=== PATIENT | male | born 1975 | race Caucasian/White ===

== ENCOUNTER 2016-10-26 09:55 | Emergency (ER) | payer BC ==
[~2016-10-26] VITALS: Ht 182.9 cm; Wt 110.2 kg
[2016-10-26 10:02] VITALS: BP 157/85
--- NOTE | 2016-10-26 11:35 | NUR ---
PT TO OVERFLOW.
--- NOTE | 2016-10-26 11:41 | NUR ---
PATIENT PRESENTS TO ED WITH C/O SORE THROAT AND COUGH . PT STATES THE SYMPTOMS STARTED 2 DAYS AGO AND HAVE GOTTEN PROGRESSIVELY WORSE . DENIES N/V/D; SKIN IS PINK/WARM/DRY; AAOX4 WITH EVEN AND STEADY GAIT; LUNGS CLEAR BL; HR EVEN AND REGULAR; PT DENIES ANY CP OR SOB AT THIS TIME; PATIENT STATES PAIN OF 8/10 AT THIS TIME; VSS; ER MD MADE AWARE OF PT STATUS.
[2016-10-26] MEDS ORDERED: PENICILLIN G BENZATHINE L-A 2.4 MU/4 ML SYR IM ONE (12:05)
[2016-10-26] MEDS ORDERED: OSELTAMIVIR PHOSPHATE 75 MG CAP PO SCH (12:05)
[2016-10-26] MEDS ORDERED: DEXAMETHASONE 4 MG/ML VIAL PO ONE (12:05)
[2016-10-26] MEDS ORDERED: ACETAMIN/CODEINE 120/12MG-5ML 5 ML UDC PO ONE (12:05)
--- NOTE | 2016-10-26 12:47 | NUR ---
Patient discharged with v/s stable. Written and verbal after care instructions given and explained.Patient alert, oriented and verbalized understanding of instructions. Ambulatory with steady gait. All questions addressed prior to discharge. ID band removed. Patient advised to follow up with PMD. Rx of TAMIFLU,TYLENOL WITH CODEINE AND MEDROL DOSEPAK given. Patient educated on indication of medication including possible reaction and side effects. Opportunity to ask questions provided and answered.
[2016-10-26 12:48] VITALS: BP 157/85
== END 2016-10-26 12:47 | disposition home or self-care (01) ==
LOC: MED 09:55
DX: J11.1 Influenza due to unidentified influenza virus with other respiratory manifestations (principal)
CPT/HCPCS: 36415; 71010; 87081; 87804; 99285; J1100